=== PATIENT | male | born 1955 | race Caucasian/White ===

== ENCOUNTER → 2016-10-09 | Outpatient (CLI) | payer BC ==
[~2016-10-09] MED LIST: IOPAMIDOL (ISOVUE 370) 100 ML BTL IV ONE
== END ==
LOC: FIMAGING 08:16
PROVIDERS: ATTEND Internal Medicine Interventional Cardiology
DX: Z09 Encounter for follow-up examination after completed treatment for conditions other than malignant neoplasm (principal); Z98.890 Other specified postprocedural states
CPT/HCPCS: Q9967

== ENCOUNTER 2017-03-13 01:23 | Emergency (ER) | payer BC ==
--- NOTE | 2017-03-13 01:38 | EDPHY ---
H & P Time Seen by Provider: 03/13/17 01:32 HPI/ROS: CHIEF COMPLAINT: Stroke alert HISTORY OF PRESENT ILLNESS: The patient is a 61-year-old man who is brought in as a stroke alert last seen normal at 10:30 p.m. before going to bed. His girlfriend states that he woke her up at 1:00 a.m. convulsing, slobbering with bloody sputum and diaphoretic. He stopped after about 30 seconds and was confused. When EMS arrived he had a slight facial droop on the right and was confused with slurred speech. They called a stroke alert. His symptoms have rapidly improved in route. On arrival to the emergency department he no longer has slurred speech. He is slightly confused about the events of today and this evening. No facial droop. No focal weakness. Patient denies having any complaints. 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 His 1st international flight is this morning at 7:00 a.m.. REVIEW OF SYSTEMS: Constitutional: denies: chills, fever, recent illness, recent injury EENTM: denies: blurred vision, double vision, nose congestion Respiratory: denies: cough, shortness of breath Cardiac: denies: chest pain, irregular heart rate, lightheadedness, palpitations Gastrointestinal/Abdominal: denies: abdominal pain, diarrhea, nausea, vomiting, blood streaked stools Genitourinary: denies: dysuria, frequency, hematuria, pain Musculoskeletal: denies: joint pain, muscle pain Skin: denies: lesions, rash, jaundice, bruising Neurological: See HPI, denies: headache, numbness, paresthesia, tingling, dizziness, weakness Hematologic/Lymphatic: denies: blood clots, easy bleeding, easy bruising Immunologic/allergic: denies: HIV/AIDS, transplant EXAM: GENERAL: Well-appearing, well-nourished and in no acute distress. HEAD: Atraumatic, normocephalic. EYES: Pupils equal round and reactive to light, extraocular movements intact, sclera anicteric, conjunctiva are normal. ENT: TMs normal, nares patent, oropharynx clear without exudates. Moist mucous membranes. NECK: Normal range of motion, supple without lymphadenopathy or JVD. LUNGS: Breath sounds clear to auscultation bilaterally and equal. No wheezes rales or rhonchi. HEART: Regular rate and rhythm without murmurs, rubs or gallops. ABDOMEN: Soft, nontender, normoactive bowel sounds. No guarding, no rebound. No masses appreciated. BACK: No CVA tenderness, no spinal tenderness, step-offs or deformities EXTREMITIES: Normal range of motion, no pitting or edema. No clubbing or cyanosis. NEUROLOGICAL: Cranial nerves II through XII grossly intact. Normal speech, normal gait. 5/5 strength, normal movement in all extremities, normal sensation , NIH stroke score of 1 only for mild confusion about the date. PSYCH: Normal mood, normal affect. SKIN: Warm, dry, normal turgor, no visible rashes or lesions. Source: Patient Exam Limitations: No limitations - Personal History Tetanus Vaccine Date: 2012 - Medical/Surgical History Hx Asthma: No Hx Chronic Respiratory Disease: No Hx Cardiac Disease: Yes Hx Renal Disease: No Hx Cirrhosis: No Hx Alcoholism: No Other PMH: Aortic aneurysm repair 2010 - Family History Significant Family History: No pertinent family hx - Social History Smoking Status: Never smoked Alcohol Use: Sober Drug Use: None Constitutional: Initial Vital Signs Temperature (C) 37.0 C 03/13/17 01:25 Heart Rate 77 03/13/17 01:25 Respiratory Rate 16 03/13/17 01:25 Blood Pressure 128/65 H 03/13/17 01:25 O2 Sat (%) 94 03/13/17 01:25 O2 Delivery Mode Nasal Cannula O2 (L/minute) 2 Allergies/Adverse Reactions: Sulfa (Sulfonamide Antibiotics) Allergy (Verified 03/13/17 01:40) Rash animals Allergy (Uncoded 03/13/17 01:40) Itching peanuts Allergy (Uncoded 03/13/17 01:40) Unknown Home Medications: Medication Instructions Recorded Aspirin [Aspirin 81mg (OTC)] 81 mg PO BID 12/04/11 NEBIVOLOL HCL [Bystolic 2.5 mg] 2.5 mg PO DAILY 03/31/13 Coenzyme Q10 [Co Q-10 30 mg (OTC)] 100 mg PO DAILY 04/05/13 Ibuprofen [Motrin] 800 mg PO TID PRN 04/05/13 Cetirizine [ZyrTEC 10 mg (RX)] 10 mg PO DAILY PRN 07/24/13 Cyanocobalamin [Vitamin B12 100 100 mcg PO DAILY 07/24/13 MCG (OTC)] Medical Decision Making - Diagnostics EKG Interpretation: An EKG obtained and was read and documented in trace view. Please see trace view for full reading and report. Sinus rhythm, no acute ischemic changes Imaging Results: Imaging Impressions Chest X-Ray 03/13/17 01:33 Impression: No acute findings in the chest. Imaging: Discussed imaging studies w/ call center support representative Radiologist ED Course/Re-evaluation: 1:40 a.m. I discussed the case with Dr. De Souza from [facility]. He agrees that this is likely a seizure. He does not recommend tPA. 2:00 a.m. the patient is improving. He is caring on conversations with his girlfriend and nurse. He still has some trouble remembering the year but was able to recall the month and day of the week. 5:00 a.m. we discussed the MRI results. They are unchanged from an MRI he had in 2010. The patient does not remember exactly why he had the MRI then but thinks that it may have been in conjunction with his aortic repair. He denies ever having a seizure before any stroke-like symptoms. He feels reassured. His exam and symptomatology are completely back to normal. He feels comfortable going home. He will follow up with a neurologist. I told him he is restricted from driving or flying until he is cleared by the neurologist. He understands this. Differential Diagnosis: Partial list of the Differential diagnosis considered include but were not limited to; seizure, TIA, CVA and although unlikely based on the history and physical exam, I also considered electrolyte abnormality, tumor, acute coronary disease, arrhythmia. I discussed these differential diagnoses and the plan with the patient as well as the usual and expected course. The patient understands that the diagnosis is provisional and that in medicine we are not always correct and that further workup is often warranted. Usual and customary warnings were given. All of the patient's questions were answered. The patient was instructed to return to the emergency department should the symptoms at all worsen or return, otherwise to followup with the physician as we discussed. - Data Points Laboratory Results: Laboratory Results 03/13/17 01:15 03/13/17 01:15 Medications Given: Discontinued Medications Sodium Chloride (Ns) 1,000 mls @ 0 mls/hr IV ONCE ONE PRN Reason: Wide Open Stop: 03/13/17 02:43 Last Admin: 03/13/17 02:44 Dose: 1,000 mls Sodium Chloride (Ns) 1,000 mls @ 0 mls/hr IV ONCE ONE PRN Reason: Wide Open Stop: 03/13/17 04:55 Last Admin: 03/13/17 04:45 Dose: 1,000 mls Departure - Departure Disposition: Home, Routine, Self-Care Clinical Impression: Seizure Condition: Fair Instructions: New-Onset Seizure in Adults (ED) Referrals: Patient,NotPresent [Unknown] - As per Instructions Uli Escobar DO [Medical Doctor] - As per Instructions
--- NOTE | 2017-03-13 01:40 | CPEKG ---
Heart Rate: 72 RR Interval: 833 P-R Interval: 208 QRSD Interval: 102 QT Interval: 416 QTC Interval: 456 P [place]: 66 QRS [place]: 70 T Wave [place]: 43 EKG Severity - NORMAL ECG - EKG Impression: SINUS RHYTHM Electronically Signed By: Jamil Webb 13-Mar-2017 01:41:39
[2017-03-13 01:49] LABS: % IMMATURE GRANULYOCYTES 0.2 % (0.0-1.1); ABSOLUTE IMMATURE GRANULOCYTES 0.02 10^3/uL (0.00-0.10); ADD DIFF? NO; ADD MORPH? NO; ADD SCAN? NO; ATYPICAL LYMPHOCYTE FLAG 0 (0-99); FRAGMENT RBC FLAG 0 (0-99); HEMATOCRIT 43.8 % (40.0-51.0); HEMOGLOBIN 15.1 g/dL (13.7-17.5); LEFT SHIFT FLG 0 (0-99); LIPEMIA HEMOLYSIS FLAG 90 (0-99); MEAN CELL HEMOGLOBIN CONCENTR. 34.5 g/dL (32.4-36.7); MEAN CELL VOLUME 95.8 fL (81.5-99.8); MEAN PLATELET VOLUME 9.4 fL (8.7-11.7); PLATELET CLUMPS FLAG 0 (0-99); PLATELET COUNT 248 10^3/uL (150-400); RED BLOOD CELL COUNT 4.57 10^6/uL (4.40-6.38); RED CELL DISTRIBUTION WIDTH 12.7 % (11.5-15.2)
[2017-03-13 01:50] VITALS: RESP 16; TEMP 98.6
[2017-03-13 01:58] LABS: PROTIME(PATIENT) 13.1 SEC (12.0-15.0)
[2017-03-13 02:05] LABS: ANION GAP 23 mEq/L (8-16); CALCIUM 9.5 mg/dL (8.5-10.4); CARBON DIOXIDE 16 mEq/l (22-31); CHLORIDE 104 mEq/L (97-110); CREATININE 1.4 mg/dL (0.7-1.3); GLOMERULAR FILTRATION RATE 52; GLUCOSE 121 mg/dL (70-100); POTASSIUM 3.8 mEq/L (3.5-5.2); SODIUM 143 mEq/L (134-144)
[2017-03-13] MEDS ORDERED: NS 1,000 ML IV ONE ×2 (02:42→04:54)
[2017-03-13] MEDS ORDERED: GADOBUTROL 10 ML VIAL IVP ONE (04:09)
[2017-03-13 05:32] VITALS: BP 118/64; PULSE 71; O2SAT 97
== END 2017-03-13 05:30 | disposition home or self-care (01) ==
LOC: EDUNIT#
DX: R56.9 Unspecified convulsions (principal); R79.1 Abnormal coagulation profile; Z79.82 Long term (current) use of aspirin; Z91.010 Allergy to peanuts
CPT/HCPCS: A9585

== ENCOUNTER → 2017-03-22 | Outpatient (CLI) | payer BC ==
--- NOTE | 2017-03-23 04:00 | GCON ---
[f rep st] CONSULTATION PHONE NOTE. DATE: 03/22/2017 I just read the patient's extended EEG which revealed left temporal sharp waves , an epileptogenic finding. Therefore, I called and spoke to the patient immediately about the findings and offered to call in antiseizure medication until his consultation with me. The patient let me know he could come in tomorrow at 1 p.m. Therefore, we could meet in person, go over all his questions, and prescribe antiseizure medication. He remains on seizure restrictions and driving precautions. He will abstain from any excessive alcohol use. We will look forward to seeing him tomorrow at 1 p.m. to evaluate and treat his seizure disorder (start anti-seizure medication). /[id number]/MODL MTDD
--- NOTE | 2017-03-23 10:51 | CPEEG ---
[f rep st] ELECTROENCEPHALOGRAM FOUR-HOUR VIDEO EEG DATE OF STUDY: 03/22/2017 INTERPRETATION: This 4-hour video EEG recording contains potentially epileptogenic abnormalities ov er the left temporal head region. These findings would be consistent with a focal seizure disorder. In addition, there was a mild degree of focal slowing over the left temporal head region. These f indings would be consistent with a mild focal disturbance of cerebral function in these regions. Du ring the video EEG monitoring session, the patient did not have any clinical events. REPORT: This 4-hour video EEG contains 10 Hz alpha activity to the posterior head regions. There w as a mild degree of focal slowing over the left temporal head region composed of intermittent, low a mplitude polymorphic theta activity. There was no specific abnormal activation with hyperventilatio n or photic stimulation. The primary feature of this recording was the presence of left temporal sh hemal waves. These occurred occasionally at rest and had increased activation during drowsiness and s leep. The patient did not have any clinical events during the video EEG monitoring session. /[id number]/MODL
== END ==
LOC: FCPNEURO 08:45
PROVIDERS: ATTEND Psychiatry & Neurology Neurology
DX: R56.9 Unspecified convulsions (principal)

== ENCOUNTER → 2017-10-14 | Outpatient (CLI) | payer BC ==
[~2017-10-14] MED LIST changes: +GADOBUTROL 10 ML VIAL IVP ONE; -IOPAMIDOL (ISOVUE 370) 100 ML BTL IV ONE
== END ==
LOC: FIMAGING 18:35
PROVIDERS: ATTEND Psychiatry & Neurology Neurology
DX: R93.0 Abnormal findings on diagnostic imaging of skull and head, not elsewhere classified (principal); G40.209 Localization-related (focal) (partial) symptomatic epilepsy and epileptic syndromes with complex partial seizures, not intractable, without status epilepticus
CPT/HCPCS: A9585